=== PATIENT | female | born 1980 | race Caucasian/White ===

== ENCOUNTER 2017-09-22 19:37 | Emergency (ER) | payer OTHER ==
[~2017-09-22] VITALS: Ht 167.6 cm; Wt 62.6 kg
[~2017-09-22 19:37] MED LIST: ACET-1256 PO
[2017-09-22 19:45] VITALS: TEMP 36.7; Ht 167.6 cm; Wt 62.6 kg
[2017-09-22] MEDS ORDERED: CLINDAMYCIN 150MG HOME PACK PO ONE (20:00)
[2017-09-22] MEDS ORDERED: OXYCODONE IR HOME PACK PO ONE (20:00)
[2017-09-22] MEDS ORDERED: CLIN300C10 PO (20:01)
[2017-09-22] MEDS ORDERED: OXYC-737 PO (20:01)
[2017-09-22 20:35] VITALS: BP 111/68; PULSE 58; O2SAT 100
--- NOTE | 2017-09-23 15:19 | EMERGENCY ROOM VISIT NOTE ---
ED Visit Note First contact with patient: 19:48 CHIEF COMPLAINT: Toothache. HISTORY OF PRESENT ILLNESS: Ms. Horowitz is a 37-year-old white female who ambulates into the ED complaining of left mandibular dental pain. [place] patient reports she has had dental cleaning 6 months ago and was told to visit a dentist for dental disease over the left mandible. Patient goes on to report that she has been having some mild achy pain over the left mandible for approximately 1 week. Then over the last 3 days the pain has become severe. She is describing a deep achy sensation with sometimes throbbing over tooth 18. She rates her discomfort 8/10. She has pain radiating down inferiorly into the angle of the jaw and also into the left preauricular area. Her pain worsens with chewing, exposure to hot and cold and palpation of her face. She has not identified any alleviating factors related to the pain. She does report ibuprofen initially helped her discomfort but since it has been severe she has not had any relief with ibuprofen. Associated with her pain she had noted mild facial swelling. She denies any fevers, chills, sweats, upper respiratory tract symptoms, sore throat, difficulty swallowing, voice changes, painful talking, drooling, ear drainage, hearing changes. REVIEW OF SYSTEMS: As noted above in History of Present Illness. 8 body systems were reviewed with this patient and found to be negative unless noted above otherwise. PMH: Status post rhinoplasty, D&C and tubal ligation. CURRENT MEDICATION: Patient denies. ALLERGIES TO MEDICATION: Patient denies. SOCIAL HISTORY: Patient is currently employed; she feels safe in her home environment; she admits to tobacco use and denies alcohol use. PHYSICAL EXAM: Vital Signs: Date Time Temp Pulse Resp B/P (MAP) Pulse Ox O2 Delivery O2 Flow Rate FiO2 09/22/17 20:35 58 18 111/68 100 09/22/17 19:45 36.7 68 18 119/69 98 Room Air General: 37 year-old white female in moderate distress due to pain, nontoxic appearing, afebrile and hemodynamically stable. Neurological: Awake, alert and oriented to person, place and time. Answering questions appropriately and following commands. Normal gait. Good hand eye coordination. No focal motor or sensory deficits. Skin: Warm, dry and pink. No soft tissue lesions, rashes, or trauma noted. HEENT: Atraumatic and normocephalic. Mild left mandibular swelling with associated tenderness. No erythema. No appearance of cellulitis. Mild tragal tenderness. Auditory canal is pink and patent. Tympanic membrane was pearly quarles with normal light reflex. Oral cavity is moist and pink. Airway is patent. Uvula is midline and no abscesses are seen. Speech is normal. Tooth # 18 shows significant decay over the crown of the tooth with moderate erythema around the gingiva but no palpable abscess. Additionally teeth 19 through 21 shows decay and color changes over the occlusive surface of these teeth. The gingiva is mildly erythematous in this area but not edematous. Positive left submandibular lymphadenopathy. ED COURSE: Patient is assessed as noted above. Patient's medication list was reviewed. Patient is educated about her findings and instructed on her treatment plan; she verbalizes understanding and agreement with this plan. CLINIC IMPRESSION: Left mandibular dental abscess. DISPOSITION: Patient discharged home in stable condition; prior to departure she was reassessed and subjectively reported she was feeling the same. PLAN: Comfort measures were discussed including a sliding pain scale of ibuprofen, acetaminophen and OxyIR; her name was checked on state database and no red flags were noted and she was given appropriate narcotic precautions. Patient was prescribed clindamycin 300 mg 4 times a day for 10 days. Patient was encouraged to followup with personal dentist for definitive care and treatment. Patient was encouraged to return the ED for worsening/uncontrolled pain, fevers , worsening facial swelling or any new/concerning symptoms.
== END 2017-09-22 20:37 | disposition home or self-care (01) ==
LOC: C.EDB 19:39 → C.EDD 20:37
DX: K04.7 Periapical abscess without sinus (principal); Z72.0 Tobacco use